=== PATIENT | female | born 2005 | race Caucasian/White ===

== ENCOUNTER 2023-11-30 01:02 | Emergency (ER) | payer MEDICAID ==
[~2023-11-30] VITALS: Ht 167.6 cm; Wt 51.2 kg
[~2023-11-30 01:02] MED LIST: AMO250L PO; AMOX400S16 PO; AZIT200S47 PO; DIPH-423 PO; HYDR28CR14 TOP; NO HOME MEDS
[2023-11-30 01:07] VITALS: BP 102/67; PULSE 89; RESP 16; TEMP 98.6; O2SAT 99
[2023-11-30] MEDS ORDERED: OMEP40CA21 PO (15:08)
[2023-11-30] MEDS ORDERED: LIDO15SO9 PO (15:08)
== END 2023-11-30 05:15 | disposition left against medical advice (07) ==
LOC: ER 01:03
DX: K92.0 Hematemesis (principal); Z53.21 Procedure and treatment not carried out due to patient leaving prior to being seen by health care provider

== ENCOUNTER 2023-11-30 12:18 | Emergency (ER) | payer MEDICAID ==
[~2023-11-30] VITALS: Ht 167.6 cm; Wt 50.7 kg
[2023-11-30 12:28] VITALS: TEMP 98.6
[2023-11-30 12:57] LABS: BILIRUBIN,URINE SMALL (Neg); CLARITY,URINE SLIGHTLY CLOUDY (Clear); COLOR,URINE YELLOW (Yellow); GLUCOSE, URINE NEGATIVE (Neg); KETONES,URINE 40 mg/dl (Neg); LEUKOCYTE ESTERASE ,URINE NEGATIVE (Neg); NITRITES, URINE NEGATIVE (Neg); OCCULT BLOOD,URINE NEGATIVE (Neg); PROTEIN,URINE 100 mg/dl (Neg); UROBILINOGEN,URINE 0.2 E.U/dL (0.2-1.0)
[2023-11-30 12:58] LABS: UA COLLECTION TYPE CLN CATCH MIDSTREAM
[2023-11-30 12:59] LABS: URINE HCG NEGATIVE (NEG)
[2023-11-30 13:04] LABS: BASOPHILS # (AUTO) 0.1 X10'3 (0-0.2); BASOPHILS % (AUTO) 0.6 % (0-1); EOSINOPHILS % (AUTO) 0.4 % (0-6); HEMOGLOBIN 14.2 g/dl (12.0-16.0); LYMPHOCYTES # (AUTO) 2.3 X10'3 (1.1-4.8); LYMPHOCYTES % (AUTO) 25.6 % (21-51); MEAN CORPUSCULAR HEMOGLOBIN 29.9 PG (27.0-31.0); MEAN CORPUSCULAR HGB CONC 33.9 g/dL (33.0-36.5); MEAN CORPUSCULAR VOLUME 88.2 FL (78-98); MEAN PLATELET VOLUME 7.5 FL (7.4-10.4); MONOCYTES # (AUTO) 0.8 X10'3 (0-0.9); MONOCYTES % (AUTO) 9.1 % (2-12); NEUTROPHILS # (AUTO) 5.8 X10'3 (1.8-7.7); NEUTROPHILS % (AUTO) 64.3 % (42-75); PLATELET COUNT 308 X10'3 (140-440); RED BLOOD COUNT 4.76 X10'6 (4.20-5.60)
[2023-11-30 13:12] LABS: BACTERIA,URINE FEW /HPF (Neg); MUCUS STRANDS MANY /LPF (Neg); SQUAMOUS EPITHELIAL CELL,UR MODERATE /LPF (FEW); WBC,URINE 0-4 /HPF (0-4)
[2023-11-30 13:14] LABS: ALANINE AMINOTRANSFERASE 29 U/L (12-78); ALBUMIN 4.5 G/DL (3.4-5.0); ALBUMIN/GLOBULIN RATIO 1.2 (1.1-1.5); ALKALINE PHOSPHATASE 57 IU/L (20-180); ANION GAP 10 (8-16); ASPARTATE AMINO TRANSFERASE 16 U/L (10-37); BILIRUBIN,TOTAL 0.6 MG/DL (0.1-1.0); BLOOD UREA NITROGEN 15 MG/DL (7-18); BUN/CREATININE RATIO 18.3 (10.0-20.0); CALCIUM 9.2 MG/DL (8.5-10.1); CHLORIDE 101 MMOL/L (99-107); CREATININE 0.82 MG/DL (0.40-0.90); GLUCOSE 79 MG/DL (70-104); LIPASE 18 U/L (16-77); POTASSIUM 4.1 MMOL/L (3.5-5.1); SODIUM 137 MMOL/L (135-145); TOTAL CARBON DIOXIDE 26.4 MMOL/L (24-32); TOTAL PROTEIN 8.2 G/DL (6.4-8.2); eCRCL 88 ML/MIN; eGFR 89 ML/MIN
[2023-11-30 14:38] LABS: ETHANOL < 10 MG/DL (<10); HCG SERUM QL NEGATIVE
[2023-11-30 14:40] LABS: APTT 31 SECONDS (22-32); INR 1.1 INR; PROTHROMBIN TIME 11.3 SECONDS (9.0-12.0)
[2023-11-30] MEDS ORDERED: OMEP40CA21 PO (15:08)
[2023-11-30] MEDS ORDERED: LIDO15SO9 PO (15:08)
[2023-11-30 15:32] VITALS: BP 93/62; PULSE 89; RESP 16; O2SAT 100
[2023-11-30 15:57] LABS: URINE AMPHETAMINE SCREEN NEGATIVE (Neg); URINE BARBITUATE SCREEN NEGATIVE (Neg); URINE BENZODIAZEPINES SCREEN NEGATIVE (Neg); URINE CANNABINOID SCREEN POSITIVE (Neg); URINE COCAINE SCREEN NEGATIVE (Neg); URINE METHADONE SCREEN NEGATIVE (Neg); URINE OPIATE SCREEN NEGATIVE (Neg); URINE PHENCYCLIDINE SCREEN NEGATIVE (Neg)
== END 2023-11-30 15:34 | disposition home or self-care (01) ==
LOC: ER 12:19
DX: K22.6 Gastro-esophageal laceration-hemorrhage syndrome (principal); F10.129 Alcohol abuse with intoxication, unspecified; K92.0 Hematemesis; Z79.2 Long term (current) use of antibiotics; Z79.899 Other long term (current) drug therapy; Y90.9 Presence of alcohol in blood, level not specified
CPT/HCPCS: 36415; 71045; 80053; 80305; 80320; 81001; 81025; 83690; 84703; 85025; 85610; 85730; 99284